=== PATIENT | male | born 1985 | race American Indian/Alaskan Native ===

== ENCOUNTER 2017-02-24 15:23 | Emergency (ER) | payer MEDICAID ==
[2017-02-24 15:41] VITALS: BP 122/78; PULSE 97; RESP 20; TEMP 97; O2SAT 99
[2017-02-24] MEDS ORDERED: Oxycodone/Acetaminophen 5/325 mg Tab PO ONE (16:01)
[2017-02-24] MEDS ORDERED: Lidocaine 2% Inj (20ml) ONE (16:02)
[2017-02-24] MEDS ORDERED: Lidocaine 2% Inj (20ml) SC STA (16:02)
[2017-02-24] MEDS ORDERED: Oxycodone/Acetaminophen 5/325 mg Tab ONE (16:05)
--- NOTE | 2017-02-24 18:26 | ED PDOC ---
HPI: General Adult Time Seen by Provider: 02/24/17 15:52 Chief Complaint (Nursing): Abnormal Skin Integrity Chief Complaint (Provider): buttock abscess History Per: Patient Additional Complaint(s): pt c/o painful mass of increasing size to L buttock x 5 days. states he has hx of same in that location and was referred to photogrammetric tech who sent pt to ED today for eval. denies fever, cp, sob, abd pain, difficulty stooling, rectal pain, saddle pain or numbness, urinary difficulties. Past Medical History Reviewed: Historical Data, Nursing Documentation, Vital Signs Vital Signs: Last Vital Signs Temp 97.0 F L 02/24/17 15:39 Pulse 97 H 02/24/17 15:39 Resp 20 02/24/17 15:39 BP 122/78 02/24/17 15:39 Pulse Ox 99 02/24/17 15:39 - Medical History PMH: No Chronic Diseases - Family History Family History: States: No Known Family Hx - Social History Current smoker - smoking cessation education provided: No Alcohol: None - Home Medications Home Medications: Ambulatory Orders Medication Instructions Recorded Clindamycin [Cleocin] 300 mg PO TID #30 cap 10/01/15 Oxycodone HCl/Acetaminophen 1 tab PO Q6 PRN #10 tab 10/01/15 [Percocet 325 mg-5 mg] Amoxicillin/Clavulanate [Augmentin 1 tab PO BID #14 tab 02/24/17 875 MG-125 MG] Ibuprofen [Motrin] 600 mg PO Q8 #20 tab 02/24/17 Sulfamethoxazole/Trimethoprim 1 tab PO BID #14 tab 02/24/17 [Bactrim DS 800 mg-160 mg] oxyCODONE/Acetaminophen [Percocet 1 ea PO Q6 #10 tab 02/24/17 5/325 mg Tab] - Allergies Allergies/Adverse Reactions: Allergies Allergy/AdvReac Type Severity Reaction Status Date / Time No Known Allergies Allergy Verified 10/01/15 16:52 Review of Systems ROS Statement: Except As Marked, All Systems Reviewed And Found Negative Skin: Positive for: Lesions Physical Exam - Reviewed Nursing Documentation Reviewed: Yes Vital Signs Reviewed: Yes - Physical Exam Appears: Positive for: Non-toxic, Uncomfortable Skin: Positive for: Normal Color, Warm, DRY Cardiovascular/Chest: Positive for: Regular Rate, Rhythm Respiratory: Positive for: CNT, Normal Breath Sounds Gastrointestinal/Abdominal: Positive for: Normal Exam, Bowel Sounds, Soft. Negative for: Tenderness Rectal: Positive for: Other (no rectal pain or mass. L buttock tender fluctuant mass w/o errythema, approx 10cm across. ) Neurologic/Psych: Positive for: Alert, Oriented - ECG O2 Sat by Pulse Oximetry: 99 Procedures - Time-Out Type of Procedure: I&D Site of Procedure: L buttock Correct Patient (with visual ID + MR# on ID Band): Yes - Incision and Drainage Site: L buttock Blade Size: 11 I & D Procedure: betadine prep, sterile drapes applied, gauze wick placed Progress: area anesthetized with 10cc lido 2% w/o epi w/ good effect. inscision made with 11 blade. large amount purulent/bloody drainage obtained. loculations broken up with blunt dissection. plain packing placed and sterile gauze applied. pt tolerated well. no complications. Disposition - Clinical Impression Clinical Impression: Left buttock abscess - Patient ED Disposition Is Patient to be Admitted: No - Disposition Referrals: Antonio Graves MD [Staff Provider] - Disposition: Routine/Home Disposition Time: 18:24 Condition: GOOD Additional Instructions: do sitz baths several times daily and take medicines as directed. f/u in 2-3 days for wound check. f/u surgeon for further care. return sooner for worsening symptoms. Prescriptions: Amoxicillin/Clavulanate [Augmentin 875 MG-125 MG] 1 tab PO BID #14 tab Sulfamethoxazole/Trimethoprim [Bactrim DS 800 mg-160 mg] 1 tab PO BID #14 tab Ibuprofen [Motrin] 600 mg PO Q8 #20 tab oxyCODONE/Acetaminophen [Percocet 5/325 mg Tab] 1 ea PO Q6 #10 tab Instructions: Abscess (ED) Forms: [facility] ED School/Work Excuse
== END 2017-02-24 18:38 | disposition home or self-care (01) ==
LOC: H.ER 15:23
DX: L02.31 Cutaneous abscess of buttock (principal)